=== PATIENT | male | born 1945 | race Caucasian/White ===

== ENCOUNTER 2019-09-14 05:26 | Emergency (ER) | payer MEDICARE, BC ==
[~2019-09-14] VITALS: Ht 177.8 cm; Wt 80.9 kg
[~2019-09-14 05:26] MED LIST: ALBU8.5H8 IH; ATOR10TA70 PO; CHOL10002 PO; FLUT16SP2 BOTHNARES; MOME13HF2 INH; NEBI5TAB10 PO; RANI300T7 PO
[2019-09-14 05:35] VITALS: BP 148/91
[2019-09-14] MEDS ORDERED: LIDOcaine 2% 10ml TOPICAL JELLY (Urojet) TP ONE (05:50)
== END 2019-09-14 06:11 | disposition home or self-care (01) ==
LOC: ER 05:26
DX: R33.9 Retention of urine, unspecified (principal); Z88.8 Allergy status to other drugs, medicaments and biological substances; Z79.899 Other long term (current) drug therapy
CPT/HCPCS: 51702; 99284

== ENCOUNTER 2019-10-14 20:03 | Emergency (ER) | payer MEDICARE, BC ==
[~2019-10-14] VITALS: Ht 177.8 cm; Wt 80.5 kg
[2019-10-14 20:15] VITALS: BP 170/86
[2019-10-14] MEDS ORDERED: LIDOcaine 2% 10ml TOPICAL JELLY (Urojet) MM ONE (21:05)
== END 2019-10-14 21:53 | disposition home or self-care (01) ==
LOC: ER 20:03
DX: R33.9 Retention of urine, unspecified (principal); R10.9 Unspecified abdominal pain; Z72.89 Other problems related to lifestyle; Z88.8 Allergy status to other drugs, medicaments and biological substances; Z79.899 Other long term (current) drug therapy
CPT/HCPCS: 51702; 99284